=== PATIENT | male | born 1945 | race Caucasian/White ===

== ENCOUNTER 2025-05-02 08:37 | Outpatient (CLI) | payer MEDICARE | END 2025-05-02 08:38 | disposition home or self-care (01) | LOC: CSHCT 08:37 | PROVIDERS: ATTEND Radiology Radiation Oncology | DX: N28.9 Disorder of kidney and ureter, unspecified (principal); C82.69 Cutaneous follicle center lymphoma, extranodal and solid organ sites; N28.1 Cyst of kidney, acquired; K76.89 Other specified diseases of liver | CPT/HCPCS: 74160 ==